=== PATIENT | male | born 1945 | race Caucasian/White ===

== ENCOUNTER → 2023-05-13 | Outpatient (CLI) | payer MEDICARE ==
--- NOTE | 2023-05-13 17:14 | US ---
EXAMINATION TYPE: US kidneys/renal and bladder DATE OF EXAM: 05/13/2023 COMPARISON: NONE CLINICAL INDICATION: Male, 78 years old with history of N39.0 UTI R31.9 HEMATURIA, UNSPECIFIED; HX UT I x few weeks ago- not on antibiotics any more. No pain. Macroscopic hematuria. EXAM MEASUREMENTS: Right Kidney: 10.8 x 4.4 x 5.7 cm Left Kidney: 11.7 x 4.0 x 5.8 cm Right Kidney: No hydronephrosis or masses seen Left Kidney: mild/moderate hydronephrosis with dilated ureter seen, unable to visualize possible bloc kage due to bowel gas Bladder: Anechoic. Echogenic focus with shadowing and twinkling artifact posterior left = 0.8 x 0.7 cm Bilateral Jets seen IMPRESSION: 1. Moderate left-sided hydronephrosis. 2. Possible 8 mm stone at the left ureteral orifice.
== END | disposition home or self-care (01) ==
LOC: RADUSWWP 07:06
PROVIDERS: ATTEND Internal Medicine
DX: N39.0 Urinary tract infection, site not specified (principal); N13.30 Unspecified hydronephrosis; R31.9 Hematuria, unspecified
CPT/HCPCS: 76770

== ENCOUNTER → 2023-05-24 | Outpatient (CLI) | payer MEDICARE ==
--- NOTE | 2023-05-24 17:10 | XR ---
EXAMINATION TYPE: XR KUB DATE OF EXAM: 05/24/2023 Comparison: None Clinical History: 78-year-old male N13.30 UNSPECIFIED HYDRONEPHROSIS Findings: Nonobstructive bowel gas pattern. No dilated small bowel loops. Mild stool in the right side of the a bdomen. Air extends distally to the rectum. Right-sided pelvic phlebolith. Possible small left-sided renal calculus measuring 3 mm. Impression: Possible 3 mm left renal calculus. Nonobstructive bowel gas pattern.
== END | disposition home or self-care (01) ==
LOC: RADXRWHC 08:52
PROVIDERS: ATTEND Urology
DX: N13.30 Unspecified hydronephrosis (principal)
CPT/HCPCS: 74018

== ENCOUNTER → 2023-05-29 | Outpatient (CLI) | payer MEDICARE ==
--- NOTE | 2023-05-29 21:32 | CT ---
EXAMINATION TYPE: CT abdomen pelvis wo con DATE OF EXAM: 05/29/2023 COMPARISON: None HISTORY: 78-year-old male KSP N13.30 UNSPECIFIED HYDRONEPHROSIS, bilateral flank pain CT DLP: 776 mGycm. Automated exposure control for dose reduction was used. TECHNIQUE: Contiguous axial scanning of the abdomen and pelvis without IV contrast. Coronal and sagit latonia reconstructions performed. FINDINGS: Heart is normal size without pericardial effusion. Scattered coronary artery calcifications are prese nt. Some emphysematous change and mild interstitial fibrosis in the visualized lower lungs. Suspect a tiny hiatal hernia. Noncontrast appearance of the liver, gallbladder, adrenal glands, kidneys, and pancreas show no gross abnormality. Kidneys show no nephrolithiasis. No hydronephrosis though there is slight asymmetric prominence to th e left ureter and a possible 6 mm calcification distal left ureter, axial image 120. In addition, vague 1 cm hypodense lesion medial cortex upper pole left kidney. Moderate atherosclerotic calcifications infrarenal abdominal aorta and common iliac arteries. No dilated small bowel, free fluid, or free air. No mesenteric or retroperitoneal lymphadenopathy. Normal appendix. Mild stool burden. Mild mid sigmoid diverticulosis. No pericolonic inflammatory rehman ge. There is moderate circumferential bladder wall thickening. Prostatomegaly at 5.1 cm wide with impress ion into the base of the bladder. Scattered pelvic phleboliths. Moderate-sized fatty indirect left inguinal hernia measuring 12.4 x 4.4 cm. There is a small direct right inguinal hernia measuring 5.3 x 3.3 cm containing a couple nonobstructe d small bowel loops. No abnormal fluid collection in the pelvis or pelvic lymphadenopathy. Bones: Mild to moderate degenerative change in both hips. 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 DISH lower thoracic spine. Moderate to advanced degenerative disc disease lower lumbar spine. Promine nt anterior endplate spondylosis lumbar spine. IMPRESSION: 1. Slight asymmetric prominence to the left ureter with a 6 mm distal left ureteral stone. No signifi cant hydronephrosis. 2. A subtle 1 cm cortical hypodensity medial upper pole left kidney could represent a small cyst. Con general counsel 6 month follow-up CT to ensure stability and exclude a small, early solid mass. 3. Moderate sized fatty indirect left inguinal hernia measuring 12.4 x 4.4 cm. 4. Small direct right inguinal hernia measuring 5.3 x 3.3 cm containing a couple nonobstructed small bowel loops. 5. Moderate circumferential bladder wall thickening may reflect chronic bladder wall hypertrophy or c ystitis. Clinically correlate. There is prostatomegaly measuring 5.1 cm wide. Correlate for symptoms of BPH.
== END | disposition home or self-care (01) ==
LOC: RADCTMAIN 14:31
PROVIDERS: ATTEND Urology
DX: N20.1 Calculus of ureter (principal); K40.90 Unilateral inguinal hernia, without obstruction or gangrene, not specified as recurrent; N40.0 Benign prostatic hyperplasia without lower urinary tract symptoms
CPT/HCPCS: 74176

== ENCOUNTER → 2023-07-29 | Outpatient (CLI) | payer MEDICARE ==
--- NOTE | 2023-07-29 10:24 | US ---
EXAMINATION TYPE: US kidneys/renal and bladder DATE OF EXAM: 07/29/2023 COMPARISON: 05/29/2023. CLINICAL INDICATION: Male, 78 years old with history of N20.1 CALCULUS OF URETER; No pain today. Hx left side hydro and stone. EXAM MEASUREMENTS: Right Kidney: 11.2 x 4.7 x 6.0 cm Left Kidney: 11.8 x 4.1 x 5.4 cm Right Kidney: No hydronephrosis or masses seen, cortical medullary differentiation is maintained. Left Kidney: No hydronephrosis or masses seen, cortical medullary differentiation is maintained. Bladder: Distended, anechoic Left jet seen There is no evidence for hydronephrosis at this point in time. No nephrolithiasis is seen. No yvnone s are identified. The urinary bladder is anechoic. Bilateral ureteral jets are seen. IMPRESSION: No obstructive uropathy or renal calculus.
--- NOTE | 2023-07-29 11:25 | XR ---
EXAMINATION TYPE: XR KUB DATE OF EXAM: 07/29/2023 9:45 AM CLINICAL INDICATION:Male, 78 years old with history of N20.1 CALCULUS OF URETER; [facility] COMPARISON: 05/24/2023 TECHNIQUE: One radiographic view of the abdomen was obtained. FINDINGS: The bowel gas pattern is nonspecific without dilated loops of small or large bowel. There i s no evidence for organomegaly or pneumoperitoneum. The osseous structures are intact. Left renal c alculi measuring up to 3 mm. Fecal material and gas are demonstrated throughout the colon and rectum. IMPRESSION: 1. Left renal calculi measuring up to 3 mm. Similar to prior. 2. Nonspecific bowel gas pattern without radiographic evidence for acute process.
== END | disposition home or self-care (01) ==
LOC: RADUSWWP 09:00
PROVIDERS: ATTEND Urology
DX: N13.2 Hydronephrosis with renal and ureteral calculous obstruction (principal)
CPT/HCPCS: 74018; 76770

== ENCOUNTER → 2024-06-08 | Outpatient (CLI) | payer MEDICARE ==
--- NOTE | 2024-06-08 12:20 | CA ---
Stress Echo Report Bebeto Day Age: 79 Gender: M : 1945 Exam Date: 06/08/2024 10:42 Exam Location: [facility] Ht (in): 70 Wt (lb): 165 Ordering Physician: Eligio Quintanilla MD Referring Physician: Eligio Quintanilla MD Sinker Puller: Rejijessieniurka Khoa Technologist Procedure CPT: Indication: R07.9 CHEST PAIN ICD-9 Codes: Rhythm: Patient History: Cardiac Medications: SEE LIST,,,,, Medications in past 24 hours: Contrast: N/A Stress Results Protocol: Johnathan Total dose(mL): NA Exercise Duration (min:sec): 6:[address] Depression (mm): Angina Score: Sorto Score: METS: 8.1 Resting HR: 79 Resting BP: 140 / 69 Peak HR: 135 Peak BP: 195 / 74 Max Predicted HR: 139 97 % Max Predicted HR Target HR: 118 Double Product: [id number] Stress Summary: BP Response: Reason for Termination: MAX EXERTION/TARGET HR Cardiac Symptoms: NO SYMPTOMS ECG Analysis Resting ECG: Stress ECG: Arrhythmia: Echo Analysis Resting Echo: Peak Echo Analysis: MEASUREMENTS (Male/Female) Normal Values CONCLUSIONS Patient underwent exercise stress echo with a Johnathan protocol treadmill stress test. Patient exercised into Stage 2 for a total of 6 minutes and 47 seconds reaching a total of 8.1 METS. Patient's maximum heart rate was 135 which represented 97% age- predicted maximum heart rate. Stress EKG portion: At baseline patient's EKG showed normal sinus rhythm, normal axis, 0.[address] depressions in lead 3 and aVF. At peak exercise, EKG showed normal sinus rhythm with diffuse ST depressions in the inferior and lateral leads. Stress echo portion: 2-D echocardiogram was performed in the parasternal long, personal short, apical 2 and apical four-chamber views at rest, peak exercise and in recovery. At baseline, echocardiogram showed left ventricular ejection fraction 55% without wall motion abnormalities. With peak exercise, echocardiogram shows improvement in left ventricular ejection fraction, increase contractility, decrease in left ventricular end systolic dimension without wall motion abnormalities consistent with a normal response to exercise. Conclusions: 1. Nonspecific stress EKG portion secondary baseline EKG abnormalities. 2. Normal stress echo portion without inducible ischemia 3. Fair exercise capacity. Dr. Wade Mena DO (Electronically Signed) Final Date: 08 June 2024 12:19
== END | disposition home or self-care (01) ==
LOC: RADNMMAIN 09:35
PROVIDERS: ATTEND Internal Medicine
DX: R07.9 Chest pain, unspecified (principal); R94.31 Abnormal electrocardiogram [ECG] [EKG]
CPT/HCPCS: 93351